=== PATIENT | male | born 1940 | race Caucasian/White ===

== ENCOUNTER 2018-02-13 17:54 | Emergency (ER) | payer OTHER ==
[~2018-02-13] VITALS: Ht 172.7 cm; Wt 61.2 kg
[~2018-02-13 17:54] MED LIST: ACETAMINOPHEN325 M1 PO; ACYCLOVIR IVPB; ATENOLOL 25 MG25 M1 PO; ATENOLOL 50MG T50 MG PO; BACTRIM DS TAB1 EACH PO; BISA-LAX5 MG PO; CALAMINE180 ML TP; CALCITRENE60 GM TP; CANNOT RECALL MEDS; CIPRO500 MG PO; COZAAR100 MG PO; DICLOFENAC SODI75 MG PO; FLOMAX0.4 MG PO; GEMFIBROZIL 60600 MG PO; HYDROCODON-ACE1 EAC7 PO; HYDROCODONE-AP1 EAC6 PO; IBUPROFEN 200200 M1 PO; MOBIC7.5 MG PO; NORVASC5 MG PO; PAIN RELIEVER500 M3 PO; PREDNISONE 20 M20 M1 PO; VALACYCLOVIR1000 MG; VICODIN ES 7.51 EACH; XANAX 0.5 MG0.5 M1 PO; ZETIA10 MG PO
[2018-02-13 18:32] LABS: ABSOLUTE EOSINOPHILS 0.1 thou/uL (0.0-0.7); ABSOLUTE LYMPHOCYTES 1.3 thou/uL (0.8-5.3); ABSOLUTE MONOCYTES 0.4 thou/uL (0.0-1.2); ABSOLUTE NEUTROPHILS 4.5 thou/uL (1.6-8.1); BASOPHILS 0.6 %; EOSINOPHILS 0.9 %; HEMATOCRIT 43.5 % (42.0-52.0); HEMOGLOBIN 14.4 gm/dL (14.0-18.0); LYMPHOCYTES 19.9 %; MCH 32.3 pg (26.0-34.0); MCHC 33.2 g/dL (28.0-37.0); MCV 97.1 fL (80.0-100.0); MONOCYTES 6.6 %; MPV 9.6 fl. (7.2-11.1); NUCLEATED RBCS 0 /100WBC; PLATELET COUNT* 162 thou/uL (150-400); RBC 4.48 mil/uL (4.50-6.00); WBC 6.3 thou/uL (4.0-11.0)
[2018-02-13 18:35] LABS: ANION GAP 9 mmol/L (7-16); BUN 21 mg/dL (7-18); CALCIUM 9.4 mg/dL (8.5-10.1); CHLORIDE 109 mmol/L (98-107); CO2 26 mmol/L (21-32); CREATININE 1.3 mg/dL (0.6-1.3); GLUCOSE 98 mg/dL (70-99); POTASSIUM 3.7 mmol/L (3.5-5.1); SODIUM 144 mmol/L (136-145)
[2018-02-13 18:42] LABS: APTT 27.2 Seconds (25.0-31.3); INR 1.1; PROTIME 10.5 Seconds (9.20-11.50)
[2018-02-13 18:54] LABS: ALBUMIN 3.7 g/dL (3.4-5.0); ALKALINE PHOSPHATASE 77 U/L (46-116); CK-MB MASS 1.3 ng/mL (<0.5-3.6); NT-PRO BRAIN NAT PEPTIDE 544 pg/mL (<300); SGOT 6 U/L (15-37); SGPT 12 U/L (30-65); TOTAL BILIRUBIN 0.5 mg/dL (<0.1-1.0); TOTAL PROTEIN 6.6 g/dL (6.4-8.2); TROPONIN-I LEVEL <0.06 ng/mL (<0.06)
[2018-02-13 18:58] LABS: URINE BILIRUBIN NEGATIVE (Negative); URINE BLOOD NEGATIVE (Negative); URINE CLARITY CLEAR; URINE COLOR YELLOW; URINE GLUCOSE-RANDOM NEGATIVE (Negative); URINE KETONES NEGATIVE (Negative); URINE LEUKOCYTES-REFLEX NEGATIVE (Negative); URINE NITRITE-REFLEX NEGATIVE (Negative); URINE PROTEIN 2+ (Negative); URINE SPECIFIC GRAVITY 1.025 (1.005-1.030); URINE UROBILINOGEN 0.2 E.U./dl (0.2-1.0)
[2018-02-13 19:08] LABS: BACTERIA-REFLEX 1-9 Few /HPF (None Seen); CASTS None Seen /LPF (None Seen); CRYSTALS None Seen /LPF (None Seen); MUCUS 4-6 Moderate strn/LPF (None Seen); SQUAMOUS 0-3 Few /LPF (0-3); URINE RBC 0-2 Rare /HPF (0-2); URINE WBC-REFLEX 0-5 Rare /HPF (0-5)
[2018-02-13 20:12] VITALS: BP 147/96
--- NOTE | 2018-02-15 11:12 | EKG ---
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1940 Requested By: Rohan Mcclure Order Number: [id number] MD: Ryne Almonte Measurements Intervals [place] Rate: 51 P: 53 IA: 166 QRS: -23 QRSD: 98 T: -20 QT: 434 QTc: 400 Interpretive Statements Sinus bradycardia old inferior infarction Borderline left axis deviation Borderline T abnormalities, inferior leads Minimal ST elevation, consider early repolarization Compared to ECG 11/16/2016 14:26:46 T-wave abnormality now present ST (T wave) deviation now present Atrial premature complex(es) no longer present Electronically Signed On 02-15-2018 11:12:00 CDT by Ryne Almonte [email or web address] <ELECTRONICALLY SIGNED> By: Ryne Almonte MD, [facility] 02/15/18 1112 1827 1827 Ryne Almonte MD, [facility] /EPI
== END 2018-02-13 20:13 | disposition home or self-care (01) ==
LOC: M.ERS 17:54
PROVIDERS: Family Medicine
DX: R41.82 Altered mental status, unspecified (principal); I25.10 Atherosclerotic heart disease of native coronary artery without angina pectoris; M19.90 Unspecified osteoarthritis, unspecified site; Z90.49 Acquired absence of other specified parts of digestive tract

== ENCOUNTER 2018-04-03 15:00 | Inpatient (IN) | payer OTHER ==
[~2018-04-03] VITALS: Ht 170.2 cm; Wt 56.7 kg
[2018-04-03 15:00] VITALS: BP 100/73
[2018-04-03 15:25] LABS: ABSOLUTE BASOPHILS 0.1 thou/uL (0.0-0.2); ABSOLUTE MONOCYTES 0.3 thou/uL (0.0-1.2); ABSOLUTE NEUTROPHILS 3.7 thou/uL (1.6-8.1); BASOPHILS 1.3 %; EOSINOPHILS 0.7 %; HEMATOCRIT 42.6 % (42.0-52.0); HEMOGLOBIN 14.2 gm/dL (14.0-18.0); LYMPHOCYTES 19.1 %; MCH 31.9 pg (26.0-34.0); MCHC 33.3 g/dL (28.0-37.0); MCV 95.9 fL (80.0-100.0); MONOCYTES 6.4 %; MPV 9.8 fl. (7.2-11.1); NUCLEATED RBCS 0 /100WBC; PLATELET COUNT* 129 thou/uL (150-400); POLYS 72.5 %; RBC 4.45 mil/uL (4.50-6.00); RDW-CV 14.1 % (10.5-14.5); WBC 5.1 thou/uL (4.0-11.0)
[2018-04-03 15:33] LABS: APTT 20.9 Seconds (25.0-31.3); INR 1.1; PROTIME 10.3 Seconds (9.20-11.50)
[2018-04-03 15:36] LABS: ANION GAP 9 mmol/L (7-16); BUN 23 mg/dL (7-18); CALCIUM 8.8 mg/dL (8.5-10.1); CHLORIDE 110 mmol/L (98-107); CO2 24 mmol/L (21-32); CREATININE 1.5 mg/dL (0.6-1.3); GLUCOSE 149 mg/dL (70-99); POTASSIUM 3.4 mmol/L (3.5-5.1); SODIUM 143 mmol/L (136-145)
[2018-04-03 15:59] LABS: ALBUMIN 3.5 g/dL (3.4-5.0); ALKALINE PHOSPHATASE 94 U/L (46-116); CK-MB MASS 1.6 ng/mL (<0.5-3.6); NT-PRO BRAIN NAT PEPTIDE 401 pg/mL (<300); SGOT 15 U/L (15-37); SGPT 14 U/L (30-65); TOTAL BILIRUBIN 0.4 mg/dL (<0.1-1.0); TOTAL PROTEIN 6.5 g/dL (6.4-8.2); TROPONIN-I LEVEL <0.06 ng/mL (<0.06)
[2018-04-03 17:20] VITALS: BP 121/64
[2018-04-03 17:45] VITALS: BP 107/69
--- NOTE | 2018-04-03 18:39 | NUR ---
PATIENT ADM TO FLOOR, ARRIVED AT 1745. PATEINT SLEEPING AT THIS TIME. MACY GIVEN IN ER FOR COMBATIVENESS. TRANSFERED TO BED WITH ASSSITX3. CLOTHES TAKEN OFF AND SENT HOME WITH DAUGHTER. 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 HOME MEDICATIONS LEFT, INSTRUCTED TO TAKE HOME. PATIENT IN HOSPITAL GOWN, AND STARTED TELEMETRY. HAD BM, CLEANED. DAUGHTER CONCERNED WITH WEAPONS BEING IN THE HOME, SINCE PATIENT LIVE ALONE. DAUGHTER STATED SHE WAS GOING TO TRY AND REMOVE THEM PRIOR TO DISCHARGE. ALSO CONCERNED WITH LENGTH OF STAY AND IF HE WILL REGAIN ORIENTATION. WILL CONTINUE TO MONITOR. NO OTHER CONCERNS AT THIS TIME.
[2018-04-03 19:25] VITALS: BP 119/71
[2018-04-04 04:25] LABS: ABSOLUTE BASOPHILS 0.1 thou/uL (0.0-0.2); ABSOLUTE EOSINOPHILS 0.1 thou/uL (0.0-0.7); ABSOLUTE MONOCYTES 0.6 thou/uL (0.0-1.2); ABSOLUTE NEUTROPHILS 3.9 thou/uL (1.6-8.1); EOSINOPHILS 1.8 %; HEMATOCRIT 43.7 % (42.0-52.0); HEMOGLOBIN 14.4 gm/dL (14.0-18.0); LYMPHOCYTES 29.7 %; MCH 32.4 pg (26.0-34.0); MCV 98.1 fL (80.0-100.0); MONOCYTES 8.4 %; MPV 9.7 fl. (7.2-11.1); NUCLEATED RBCS 0 /100WBC; PLATELET COUNT* 125 thou/uL (150-400); POLYS 59.1 %; RBC 4.46 mil/uL (4.50-6.00); RDW-CV 14.3 % (10.5-14.5); WBC 6.7 thou/uL (4.0-11.0)
[2018-04-04 04:29] LABS: CALCIUM 8.9 mg/dL (8.5-10.1); CREATININE 1.3 mg/dL (0.6-1.3); POTASSIUM 3.7 mmol/L (3.5-5.1)
--- NOTE | 2018-04-04 05:11 | NUR ---
PT HAS SLEPT MOST OF THE NIGHT. AWOKE AND STATED NEEDED TO URINATE. PT HAS ATTEMPTED NUMEROUS TIMES UNSECCESSFULLY. BLADDER SCAN PERFOREMD AND 504ML. A U CALL MESSAGE WAS SENT TO , NO NEW ORDERS RECIEVED AT THIS TIME. TELEMETRY PACK INTACT WITH [facility]AR[facility] SET. WHEN PT SLEEPING HE IS ANA WITH HR DECREASED TO 40. PT IS CONFUSED THIS AM AND DOES NOT UNDERSTAND HE IS IN HOSPITAL OR WHAT IS GOING ON. VSS AND NO ACUTE CHANGES DURING SHIFT WILL CONTINUE TO MONITOR
[2018-04-04 05:33] VITALS: BP 152/80
[2018-04-04 08:00] VITALS: BP 156/83
[2018-04-04 12:04] VITALS: BP 147/94
[2018-04-04 12:39] LABS: URINE BILIRUBIN NEGATIVE (Negative); URINE BLOOD TRACE (Negative); URINE CLARITY CLEAR; URINE COLOR YELLOW; URINE GLUCOSE-RANDOM NEGATIVE (Negative); URINE KETONES NEGATIVE (Negative); URINE LEUKOCYTES-REFLEX NEGATIVE (Negative); URINE NITRITE-REFLEX NEGATIVE (Negative); URINE PROTEIN NEGATIVE (Negative); URINE UROBILINOGEN 0.2 E.U./dl (0.2-1.0)
--- NOTE | 2018-04-04 13:01 | EKG ---
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 : 1940 Requested By: Rohan Mcclure Order Number: [id number] MD: David Medel Measurements Intervals [place] Rate: 64 P: 63 ND: 166 QRS: -52 QRSD: 97 T: -15 QT: 390 QTc: 403 Interpretive Statements Sinus rhythm Inferoposterior infarct, age indeterminate Compared to ECG 02/13/2018 18:27:22 Sinus bradycardia no longer present T-wave abnormality no longer present ST (T wave) deviation no longer present Myocardial infarct finding still present Electronically Signed On 04-04-2018 13:01:17 CDT by David Medel [email or web address] <ELECTRONICALLY SIGNED> By: David Medel MD, FAC 04/04/18 1301 1524 1524 David Medel MD, FAC /EPI
--- NOTE | 2018-04-04 15:20 | NUR ---
PT HAS ERECTION FOR APPROX 3 HOURS. PT UNCOMFORTABLE. PT VOIDING WITHOUT DIFFICULTY. DR TELLEZ NOTIFIED
[2018-04-04 16:00] VITALS: BP 164/88
--- NOTE | 2018-04-04 16:38 | NUR ---
CM ATTEMPED TO SPEAK TO THE PATIENT TO DISCUSS HOME SITUATION, DISCHARGE PLANNING, AND TO INFORM OF THE ROLE OF CM. PATIENT ALERT, BUT FORGETFUL. PATIENT UNABLE TO ANSWER QUESTIONS APPROPRIATELY. PATIENT'S FAMILY INFORMS THAT THE PATIENT RESIDES AT HOME ALONE, AND WAS INDEPENDENT, ACTIVE, AND DROVE PRIOR TO ADMISSION. PATIENTS FAMILY IS SUPPORTIVE AND INVOLVED. PATIENT HAS NO HX OF HH OR SNF, AND FAMILY INFORMS THAT THE PATIENT WILL WANT TO GO HOME AT D/C. CM WILL REMAIN AVAILABLE TO ASSIST AND FOLLOW NEEDED.
--- NOTE | 2018-04-04 16:46 | NUR ---
PT UP IN ROOM WITH STAND BY ASSIST. PT STEADY. TOLERATING PO WELL. PT HAS ERECTION INTERMITTENTLY BUT HAS NO DIFFICULTIES VOIDING. PT CONFUSED AND HARD TO REDIRECT
[2018-04-04 20:00] VITALS: BP 171/88
[2018-04-05] VITALS: BP 145/84
[2018-04-05 04:47] VITALS: BP 128/81
[2018-04-05 04:47] LABS: ABSOLUTE BASOPHILS 0.1 thou/uL (0.0-0.2); ABSOLUTE EOSINOPHILS 0.1 thou/uL (0.0-0.7); ABSOLUTE LYMPHOCYTES 1.6 thou/uL (0.8-5.3); ABSOLUTE MONOCYTES 0.5 thou/uL (0.0-1.2); ABSOLUTE NEUTROPHILS 3.8 thou/uL (1.6-8.1); BASOPHILS 1.2 %; CALCIUM 9.1 mg/dL (8.5-10.1); CREATININE 1.4 mg/dL (0.6-1.3); EOSINOPHILS 1.2 %; HEMATOCRIT 42.6 % (42.0-52.0); HEMOGLOBIN 14.1 gm/dL (14.0-18.0); LYMPHOCYTES 26.7 %; MCHC 33.2 g/dL (28.0-37.0); MCV 96.2 fL (80.0-100.0); MONOCYTES 7.8 %; MPV 9.9 fl. (7.2-11.1); NUCLEATED RBCS 0 /100WBC; PLATELET COUNT* 128 thou/uL (150-400); POLYS 63.1 %; POTASSIUM 3.5 mmol/L (3.5-5.1); RBC 4.43 mil/uL (4.50-6.00); RDW-CV 14.3 % (10.5-14.5)
--- NOTE | 2018-04-05 05:00 | NUR ---
ASSUMED PT CARE AT 1930. ASSESSMENT COMPLETED CHARTED. PT UP WITH STANDBY IN ROOM WITH BED ALARM ON TO KEEP PT FROM WANDERING. NO C/O PAIN OR DISCOMFORT, PT MUMBLES AND RANTS ON ABOUT UNRELATED TOPICS. GETS AGGITATED WITH STAFF ABOUT MAKING SURE HE IS SAFE. WILL CONTINUE TO MONITOR.
[2018-04-05 08:00] VITALS: BP 160/88
--- NOTE | 2018-04-05 12:09 | NUR ---
ASSUMED CARE OF PT AT 0730. PT REMAINS A&O X1 TO SELF AND PLEASANTLY CONFUSED. PT RESPONDS TO MOST QUESTIONS APPROPRIATELY BUT DOES TEND TO RAMBLE ON WITH A FLIGHT OF IDEAS AND DISORGINZED THINKING, AT TIME IT ALMOST BECOMES WORD SALAD. PT HAS BEEN COMPLITANT WITH MEDICATIONS AND PROCEDURES AND REALITY ORINTATION HAS BEEN PROVIDED ON A REGULAR BASIS. CLOSE OBSERVATION OF SIDE EFFECTS FROM ATYPICAL ANTIPSYCHOTIC HAS BEEN NEGATIVE. PT HAS A POOR APPETITE AND HAS BEEN OFFEERED HIGH PROTIEN SNACKS BETWEEN MEALS. PT HAS HAD NO C/O PAIN OR DISTRESS AND IS CURRENTLY RESTING IN HIS RECLINER WTIH DAUGHTER AT BEDSIDE. NURSING WILL CONTINUE TO CLOSELEY MONNITOR AT INTERVALS OF AT LEAST EVERY 15 MIN AND ATTEMPT TO REMOVE THE SITTER. PT VSS AND NO APPARENT DISTRRSS.
[2018-04-05 16:00] VITALS: BP 160/101
--- NOTE | 2018-04-05 18:54 | NUR ---
PT BECAME A LITTLE RESTLESS THIS EVENING AND APPEARS TO BE ING. PT WAS PROVIDED WITH ACTIVITIES AND ASSISTED TO AMBULATE IN THE [place]. PT IS NOW RESTING IN BED WATCHING TV. NURSING WILL CONTINUE TO MONITOR.
[2018-04-05 20:00] VITALS: BP 138/89
--- NOTE | 2018-04-06 06:23 | NUR ---
TOOK OVER PT CARE AT APPROXIMATELY 23:30 ON 04/05/18. PT IS ABLE TO COMMUNICATE HIS NEEDS TO STAFF WITH MINOR DIFFICULTY; HE IS CONFUSED, FORGETFUL, AND HAS SOME EXPRESSIVE APHASIA. ADDITIONALLY, HE HAS HAD SOME VOCAL CORD DAMAGE IN THE PAST. 1:1 OBSERVATION USING A SITTER WAS MAINTAINED DURING THIS SHIFT, UP TO THIS TIME. HE HAS DENIED THE NEED FOR PAIN RELIEF MEDICATION UP TO THIS TIME.
[2018-04-06 08:00] VITALS: BP 98/79
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
[2018-04-06 16:44] VITALS: BP 143/83
[2018-04-06 20:03] VITALS: BP 165/86
[2018-04-07 04:00] VITALS: BP 97/63
--- NOTE | 2018-04-07 05:37 | NUR ---
PT IS ABLE TO COMMUNICATE HIS NEEDS TO STAFF WITH SOME DIFFICULTY; HE IS [id number], FORGETFUL AND OFTEN CONFUSED. HE HAS EXPRESSED HIS DESIRE TO LEAVE SEVERAL TIMES. HE HAS DENIED THE NEED FOR PAIN MEDICATION UP TO THIS TIME. HIS APPETITE REMAINS LOW. LIKELY EVAL, FOR POSSIBLE SNF PLACEMENT, TOMORROW.
[2018-04-07 08:15] VITALS: BP 121/67
--- NOTE | 2018-04-07 09:54 | NUR ---
ASSUMED CARE OF PT AROUND 0730 THIS AM. REFER TO ASSESSMENT. PT HAS NO CONCERNS THIS AM. CALM AND COOPERATIVE AT THIS TIME. FALL PRECAUTIONS IN PLACE. CLWR. WCTM.
[2018-04-07 15:55] VITALS: BP 114/71
--- NOTE | 2018-04-07 16:25 | NUR ---
PT PROGRESSING TOWARDS GOALS THIS SHIFT. PT DID NOT REQUIRE ANY 1:1 OBSERVATION THIS SHIFT. FALL PRECAUTIONS MAINTAINED. PT REPORTED DIFFICULTY HAVING A BM. PT GIVEN TWO PRUNE JUICES THEN GIVEN A PRN DOSE MIRALAX. PT HAD BM THIS EVENING. NO OTHER CONCERNS AT THIS TIME. CLWR. WCTM.
[2018-04-07 20:41] VITALS: BP 143/81
[2018-04-08 03:40] VITALS: BP 107/64
--- NOTE | 2018-04-08 07:03 | NUR ---
PT IS ABLE TO COMMUNICATE HIS NEEDS TO STAFF WITH SLIGHT DIFFICULTY; HE IS FORGETFUL AND OFTEN CONFUSED; ADDITIONALLY HE HAS SOME EXPRESSIVE APHASIA. HE HAS DENIED THE NEED FOR PAIN MEDICATION UP TO THIS TIME. POSSIBLE EVALUATION FOR SNF PLACEMENT LATER TODAY. UROLOGY AND NEUROLOGY FOLLOWING.
[2018-04-08 08:00] VITALS: BP 136/78
[2018-04-08] MEDS ORDERED: ARICEPT 5 MG TAB5 MG PO (09:27)
[2018-04-08] MEDS ORDERED: RISPERIDONE 00.25 M1 PO (09:27)
[2018-04-08] MEDS ORDERED: NAMENDA 10 MG T10 MG PO (09:28)
--- NOTE | 2018-04-08 09:46 | NUR ---
RECEIVED REPORT FROM DREW AND ASSUMED CARE OF PT @ 7384.PT IS A/O X1 WITH CONFUSION AND FORGETFULNESS.VSS,MED-SURG STATUS.LUNG SOUNDS ARE CLEAR.IV RIGHT FOREARM PATENT AND SALINE LOCKED.PT IS CALM AND COOPERATIVE WITH NO C/O PAIN AT TIME OF ASSESSMENT.PT IS UP SBA TO BATHROOM.PT LEFT RESTING IN BED WITH EYES CLOSED.CALL LIGHT AND FALL PRECAUTIONS IN PLACE.WILL CONTINUE TO MONITOR. FAMILY AT BEDSIDE.DR SOTO PT FOR DISCHARGE.
[2018-04-08 10:12] VITALS: BP 136/78
--- NOTE | 2018-04-08 12:06 | NUR ---
PT OK FOR DISCHARGE.PAPERWORK COMPLETED.SCRIPTS GIVEN WITH EDUCATION.HOME HEALTH SET UP WITH [facility] PER CASE MANAGEMENT.IV REMOVED.ALL PERSONAL BELONGINGS PACKED AND TAKEN WITH PT.PT WHEELED OUT BY NURSING STAFF TO PERSONAL VEHICLE.
[2018-04-08 12:08] VITALS: BP 136/78
--- NOTE | 2018-04-08 12:12 | NUR ---
Pt discharging to home today. Pt's family in room and in agreement with POC. Faxed dc orders to [facility] per family request. Dtr plans to meet [facility] staff at Pt's home for visits. Family to transport home
--- NOTE | 2018-04-11 12:00 | CON ---
[address] [address] CONSULTATION Name: CARLIE REYNAGA Myke Room: [address] IN .R.#: [id number] Admission: 04/03/18 Attend Phys: Edi Wolfe MD Discharge: 04/08/18 Date of : 38 Report #: [id number] THIS REPORT FOR: //name// CC: Edi Drake DATE OF SERVICE: 04/04/2018 UROLOGY CONSULTATION REFERRING PHYSICIAN: Edi Wolfe MD REASON FOR CONSULTATION: Penile pain. HISTORY OF PRESENT ILLNESS: This is a 77-year-old male admitted with altered mental status and combativeness. He is largely incoherent, but answers some questions, so much of the history is gleaned from the chart and from the patient's nurse. Urology was consulted regarding intermittent problems with painful erection since his admission. The patient denies any penile pain, denies problems with erection, denies scrotal pain. Denies dysuria, hematuria or sensation of incomplete emptying. He has followed with Dr. Batista in our office in the past according to prior notes and consults, but is not certain when he was last seen. Neurology has seen the patient. He reportedly got a dose of Geodon due to combativeness during this admission. Nursing reports the patient has been making inappropriate sexual gestures and comments. PAST MEDICAL HISTORY: As above. Also, he has a history of renal insufficiency. Also, history of dementia for which he was put on medication recently. ALLERGIES: No known drug allergies. MEDICATIONS: List is reviewed. FAMILY AND SOCIAL HISTORY: Largely unobtainable. The patient denies tobacco or alcohol use and denies any other recent illness. REVIEW OF SYSTEMS: The patient denies chest pain, shortness of breath or palpitations, but again is incoherent when attempting to answer questions. PHYSICAL EXAMINATION: VITAL SIGNS: Temperature 36.4, pulse 56, respirations 18, blood pressure 164/88. GENERAL: This is a 77-year-old male in no acute distress. He is awake and answers some questions, but is clearly disoriented. HEENT: Normocephalic, atraumatic. NECK: [place] [address] CONSULTATION Name: CARLIE REYNAGA Room: [address]#: [id number] Admission: 04/03/18 Attend Phys: Edi Wolfe MD Discharge: 04/08/18 Date of : 38 Report #: [id number] RESPIRATORY: Effort and excursion are normal. CHEST WALL: Nontender. CARDIAC: Rhythm is regular. Radial pulses are palpable. EXTREMITIES: Extremities are warm. No peripheral edema. He moves all extremities well. ABDOMEN: Soft, nontender, nondistended. Bladder is nontender and nonpalpable. BACK: Spine and costovertebral angles are nontender. GENITOURINARY: Skin of the penis and scrotum is normal. Testes are nontender with no palpable masses. Penis is normal and flaccid. Urethral meatus is orthotopic. The patient denies any tenderness whatsoever on examination. LABORATORY STUDIES: Include hemoglobin 14.4, white count 6.7 and platelet count 125,000. Sodium 140, potassium 3.7, chloride 113, CO2 of 21, BUN 24, creatinine 1.3, glucose 98. Urinalysis revealed trace blood. Again, the patient has been seen in the office and can certainly follow regarding that as an outpatient. IMPRESSION AND PLAN: Penile pain and intermittent erection. Exam at this time reveals a flaccid penis and the patient denies pain. Priapism related to Geodon seems unlikely unless it has resolved spontaneously. Certainly some concern over whether the patient's intermittent erection is behavioral or due to hypersexuality possibly related to his neurologic condition. In any case, I would avoid Geodon or similar agents, (nefazodone and trazodone, EG). Urology will sign off. I recommend the patient follow up with Dr. Batista after recovery from his acute illness. Please contact us with further concerns. <ELECTRONICALLY SIGNED> By: David Campbell MD 04/11/18 1200 1747 2020David Campbell MD /nt
== END 2018-04-08 12:15 | disposition home health service (06) | DRG 56 ==
LOC: M.ERS 15:00 → M.2W 15:53 → M.TBA-ER 15:53 → M.2W 17:34
PROVIDERS: Family Medicine; ADMIT Internal Medicine
DX: G30.9 Alzheimer's disease, unspecified (principal); G92 Toxic encephalopathy; F23 Brief psychotic disorder; N48.30 Priapism, unspecified; F02.81 Dementia in other diseases classified elsewhere, unspecified severity, with behavioral disturbance; F05 Delirium due to known physiological condition; E44.1 Mild protein-calorie malnutrition; Z68.1 Body mass index [BMI] 19.9 or less, adult; E86.0 Dehydration; N18.3 Chronic kidney disease, stage 3 (moderate); M19.90 Unspecified osteoarthritis, unspecified site; I13.10 Hypertensive heart and chronic kidney disease without heart failure, with stage 1 through stage 4 chronic kidney disease, or unspecified chronic kidney disease; I25.10 Atherosclerotic heart disease of native coronary artery without angina pectoris; Z79.899 Other long term (current) drug therapy

== ENCOUNTER 2019-07-18 11:43 | Inpatient (IN) | payer OTHER ==
[~2019-07-18] VITALS: Ht 177.8 cm; Wt 53.5 kg
[~2019-07-18 11:43] MED LIST changes: +ARICEPT 5 MG TAB5 MG PO; +NAMENDA 10 MG T10 MG PO; +RISPERIDONE 00.25 M1 PO
[2019-07-18 11:51] VITALS: BP 136/56
[2019-07-18 13:01] LABS: CALCIUM 9.7 mg/dL (8.5-10.1); CREATININE 1.9 mg/dL (0.6-1.3); POTASSIUM 4.7 mmol/L (3.5-5.1)
[2019-07-18 13:06] LABS: ALBUMIN 3.7 g/dL (3.4-5.0); TOTAL BILIRUBIN 0.6 mg/dL (<0.1-1.0); TOTAL PROTEIN 6.7 g/dL (6.4-8.2)
[2019-07-18 13:26] LABS: ABSOLUTE BASOPHILS 0.1 thou/uL (0.0-0.2); ABSOLUTE LYMPHOCYTES 0.8 thou/uL (0.8-5.3); ABSOLUTE MONOCYTES 0.5 thou/uL (0.0-1.2); ABSOLUTE NEUTROPHILS 7.8 thou/uL (1.6-8.1); BASOPHILS 0.8 %; EOSINOPHILS 0.2 %; HEMATOCRIT 45.6 % (42.0-52.0); HEMOGLOBIN 15.1 gm/dL (14.0-18.0); LYMPHOCYTES 9.1 %; MCH 31.5 pg (26.0-34.0); MCHC 33.1 g/dL (28.0-37.0); MCV 95.1 fL (80.0-100.0); MONOCYTES 5.3 %; MPV 9.7 fl. (7.2-11.1); NUCLEATED RBCS 0 /100WBC; PLATELET COUNT* 155 thou/uL (150-400); POLYS 84.6 %; RBC 4.79 mil/uL (4.50-6.00); RDW-CV 14.9 % (10.5-14.5); WBC 9.2 thou/uL (4.0-11.0)
[2019-07-18 13:34] LABS: APTT 27.8 Seconds (25.0-31.3); PROTIME 10.7 Seconds (9.20-11.50)
[2019-07-18 14:11] LABS: URINE BILIRUBIN NEGATIVE (Negative); URINE BLOOD NEGATIVE (Negative); URINE CLARITY CLEAR; URINE COLOR YELLOW; URINE GLUCOSE-RANDOM NEGATIVE (Negative); URINE KETONES TRACE (Negative); URINE LEUKOCYTES-REFLEX NEGATIVE (Negative); URINE NITRITE-REFLEX NEGATIVE (Negative); URINE PROTEIN NEGATIVE (Negative); URINE SPECIFIC GRAVITY 1.025 (1.005-1.030); URINE UROBILINOGEN 0.2 E.U./dl (0.2-1.0)
--- NOTE | 2019-07-18 18:16 | EKG ---
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1940 Requested By: Dalila Crowley Order Number: [id number] MD: Riki Richards Measurements Intervals [place] Rate: 98 P: ME: QRS: -69 QRSD: 186 T: 118 QT: 424 QTc: 542 Interpretive Statements Sinus rhythm Paired ventricular premature complexes Nonspecific IVCD with LAD Abnormal T, consider ischemia, lateral leads Baseline artifact Compared to ECG 04/03/2018 15:24:54 Ventricular premature complex(es) now present Intraventricular conduction delay now present T-wave abnormality now present Possible ischemia now present Myocardial infarct finding no longer present Electronically Signed On 07-18-2019 18:15:45 CDT by Riki Richards [email or web address] <ELECTRONICALLY SIGNED> By: Riki Richards MD, FACC 07/18/19 1815 1155 1155 Riki Richards MD, FACC /EPI
[2019-07-18 20:35] VITALS: BP 107/50
[2019-07-18 21:00] VITALS: BP 119/76; BP 130/61
[2019-07-19 07:40] VITALS: BP 104/49
[2019-07-19 19:45] VITALS: BP 107/54
[2019-07-20 08:21] VITALS: BP 120/67
[2019-07-20 17:04] VITALS: BP 127/75
[2019-07-20 19:45] VITALS: BP 124/63
[2019-07-21 15:34] VITALS: BP 127/95
[2019-07-21 20:00] VITALS: BP 93/50
[2019-07-22 07:30] VITALS: BP 112/56
[2019-07-22 16:00] VITALS: BP 138/69
[2019-07-22 20:00] VITALS: BP 145/97
[2019-07-23 07:35] VITALS: BP 142/73
[2019-07-23] MEDS ORDERED: TRAMADOL 50 MG50 MG PO (08:38)
[2019-07-23] MEDS ORDERED: REMERON15 MG PO (08:40)
[2019-07-23 10:30] VITALS: BP 142/73
[2019-07-23 16:17] VITALS: BP 125/87
[2019-07-23 21:07] VITALS: BP 115/64
[2019-07-24 08:30] VITALS: BP 102/71
== END 2019-07-24 15:29 | DRG 86 ==
LOC: M.ERS 11:43 → M.3W 16:25 → M.2W 16:25 → M.TBA-ER 16:25 → M.2W 21:17 → M.3W 07-19 16:12
PROVIDERS: Nurse Practitioner Family; ADMIT Internal Medicine
DX: S06.5X0A Traumatic subdural hemorrhage without loss of consciousness, initial encounter (principal); G93.49 Other encephalopathy; I10 Essential (primary) hypertension; I25.10 Atherosclerotic heart disease of native coronary artery without angina pectoris; M19.90 Unspecified osteoarthritis, unspecified site; F03.90 Unspecified dementia, unspecified severity, without behavioral disturbance, psychotic disturbance, mood disturbance, and anxiety; N40.0 Benign prostatic hyperplasia without lower urinary tract symptoms; F32.9 Major depressive disorder, single episode, unspecified; F41.1 Generalized anxiety disorder; Z87.81 Personal history of (healed) traumatic fracture; E86.9 Volume depletion, unspecified; N18.3 Chronic kidney disease, stage 3 (moderate); Z66 Do not resuscitate; Z90.49 Acquired absence of other specified parts of digestive tract; Z23 Encounter for immunization; W18.39XA Other fall on same level, initial encounter; Y93.89 Activity, other specified; Y92.89 Other specified places as the place of occurrence of the external cause; Y99.8 Other external cause status